=== PATIENT | female | born 1975 ===

== ENCOUNTER 2017-09-25 20:46 | Emergency (ER) | payer MEDICAID ==
[2017-09-25 21:51] VITALS: RESP 16; TEMP 98.4; O2SAT 100
[2017-09-25] MEDS ORDERED: Oxycodone/Acetaminophen 5/325 mg Tab PO STA ×2 (22:36→23:51)
[2017-09-25] MEDS ORDERED: Oxycodone/Acetaminophen 5/325 mg Tab ONE (22:45)
--- NOTE | 2017-09-25 23:54 | CT ---
EXAM: CT Head Without Intravenous Contrast CLINICAL HISTORY: 41 years old, female; Injury or trauma; Fall; Initial encounter; Concussion / head injury; Consciousness not specified; Injury details: Patient states: Fell in bathtub TECHNIQUE: Axial computed tomography images of the head/brain without intravenous contrast. All CT scans at this facility use one or more dose reduction techniques, viz.: automated exposure control; ma/kV adjustment per patient size (including targeted exams where dose is matched to indication; i.e. head); or iterative reconstruction technique. Coronal and sagittal reformatted images were created and reviewed. COMPARISON: No relevant prior studies available. FINDINGS: Brain: Unremarkable. No significant white matter disease. No edema. No intracranial mass, mass effect, or midline shift. Ventricles: Unremarkable. No ventriculomegaly. Bones/joints: Unremarkable. No acute fracture. Soft tissues: Unremarkable. Sinuses: Unremarkable as visualized. No acute sinusitis. Mastoid air cells: Unremarkable as visualized. No mastoid effusion. IMPRESSION: No acute intracranial abnormality.
--- NOTE | 2017-09-26 | CT ---
EXAM: CT Cervical Spine Without Intravenous Contrast CLINICAL HISTORY: 41 years old, female; Injury or trauma; Fall; Initial encounter; Concussion /head injury; Injury details: Patient states: Fell in bathtub; Additional info: Neck injury TECHNIQUE: Axial computed tomography images of the cervical spine without intravenous contrast. All CT scans at this facility use one or more dose reduction techniques, viz.: automated exposure control; ma/kV adjustment per patient size (including targeted exams where dose is matched to indication; i.e. head); or iterative reconstruction technique. Coronal and sagittal reformatted images were created and reviewed. COMPARISON: No relevant prior studies available. FINDINGS: Vertebrae: Unremarkable. No acute fracture. No lytic or blastic lesions. Discs/spinal canal/neural foramina: No acute findings. Soft tissues: Unremarkable. Lung apices: Unremarkable as visualized. IMPRESSION: No acute cervical spine fracture.
--- NOTE | 2017-09-26 01:10 | ED PDOC ---
HPI: Back Time Seen by Provider: 09/25/17 22:30 Chief Complaint (Nursing): Back Pain Chief Complaint (Provider): back pain History Per: Patient (41 y/o female h/o DM here for evaluation of fall that occurred in shower. States she tripped and fell to side/injuring her right shoulder/neck/back and struck head. No LOC. Denies any use of anticoagulants. Did not take any medications prior to ED arrival.) Past Medical History Reviewed: Historical Data, Nursing Documentation, Vital Signs Vital Signs: Last Vital Signs Temp 98.4 F 09/25/17 21:49 Pulse 106 H 09/25/17 21:49 Resp 16 09/25/17 21:49 BP 146/100 H 09/25/17 21:49 Pulse Ox 100 09/25/17 21:49 - Family History Family History: States: No Known Family Hx - Home Medications Home Medications: Ambulatory Orders Medication Instructions Recorded Ibuprofen [Motrin] 600 mg PO Q6 #20 tab 11/05/16 Naproxen 1 tab PO Q12 PRN #14 tab 09/26/17 diaZEpam [Valium] 5 mg PO Q6 PRN #5 tab 09/26/17 - Allergies Allergies/Adverse Reactions: Allergies Allergy/AdvReac Type Severity Reaction Status Date / Time No Known Allergies Allergy Verified 09/25/17 21:49 Review of Systems ROS Statement: Except As Marked, All Systems Reviewed And Found Negative Physical Exam - Reviewed Nursing Documentation Reviewed: Yes Vital Signs Reviewed: Yes - Physical Exam Appears: Positive for: Well, Non-toxic, No Acute Distress Head Exam: Positive for: ATRAUMATIC, NORMAL INSPECTION, NORMOCEPHALIC Skin: Positive for: Normal Color, Warm, DRY Eye Exam: Positive for: EOMI, Normal appearance, PERRL ENT: Positive for: Normal ENT Inspection Neck: Positive for: Normal (paracervical tenderness), Painless ROM Cardiovascular/Chest: Positive for: Regular Rate, Rhythm Respiratory: Positive for: CNT, Normal Breath Sounds Gastrointestinal/Abdominal: Positive for: Normal Exam, Bowel Sounds, Soft Back: Positive for: Normal Inspection, Vertebral Tenderness (paralumbar tenderness) Extremity: Positive for: Normal ROM, Tenderness (tenderness right shoulder/ tender right clavicle.) Neurologic/Psych: Positive for: Alert, Oriented - Laboratory Results Urine POC: Negative - ECG O2 Sat by Pulse Oximetry: 100 - Progress ED Course And Treament: Percocet 5/325 mg x [address] of Head: nad Ct C spine: no fx percocet 5/325 mg x 2nd dose for persistent pain xry of right shoulder: no fx xry of lumbar spine: no fx Disposition - Clinical Impression Clinical Impression: Back pain, Head injury, Shoulder injury - Patient ED Disposition Is Patient to be Admitted: No - Disposition Referrals: [facility] [Outside] Disposition: Routine/Home Disposition Time: :10 Condition: FAIR Prescriptions: diaZEpam [Valium] 5 mg PO Q6 PRN #5 tab PRN Reason: Muscle Spasm Naproxen 1 tab PO Q12 PRN #14 tab PRN Reason: Pain, Moderate (4-7) Instructions: Head Injury (ED), Acute Low Back Pain (GEN), Shoulder Sprain (ED) Forms: [employer] (Irish), [facility] ED School/Work Excuse
[2017-09-26] MEDS ORDERED: HYDROmorphone 0.5 mg/0.5 ml ISec IM STA (01:22)
[2017-09-26 01:44] VITALS: BP 139/86; PULSE 86
--- NOTE | 2017-09-26 11:18 | RAD ---
PROCEDURE: Radiographs of the Lumbar Spine. HISTORY: INJURY COMPARISON: No prior. FINDINGS: BONES: Normal alignment. No listhesis. No fracture. DISC SPACES: Unremarkable. OTHER FINDINGS: Constipation without fecal impaction or obstruction. IMPRESSION: Unremarkable radiographs of the lumbar spine.
--- NOTE | 2017-09-26 11:19 | RAD ---
PROCEDURE: Radiographs of the Right Shoulder HISTORY: RIGHT INJURY COMPARISON: No prior. FINDINGS: BONES: Normal. No fracture. JOINTS: Normal. Glenohumeral and acromioclavicular joints preserved. No osteoarthritis. SOFT TISSUES: Normal. OTHER FINDINGS: None. IMPRESSION: Normal radiographs of the right shoulder.
== END 2017-09-26 01:43 | disposition home or self-care (01) ==
LOC: H.ER 20:46
DX: S09.90XA Unspecified injury of head, initial encounter (principal); M54.9 Dorsalgia, unspecified; W01.0XXA Fall on same level from slipping, tripping and stumbling without subsequent striking against object, initial encounter; Y93.E1 Activity, personal bathing and showering; E11.9 Type 2 diabetes mellitus without complications
CPT/HCPCS: 70450; 72100; 72125; 73030; 81025; 96372; 99282; J1170

== ENCOUNTER 2018-10-06 19:54 | Emergency (ER) | payer MEDICAID ==
[2018-10-06 19:55] VITALS: BMI 30.7
[2018-10-06 20:56] VITALS: BP 132/62; PULSE 90; RESP 17; TEMP 98.4; O2SAT 100
--- NOTE | 2018-10-06 21:13 | ED PDOC ---
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 Patient states she thought that she had to take x2 pills in the morning, afternoon and evening instead of all at once and became concerned prompting ED evaluation. She denies any chest pain, shortness of breath or other medical complaints. PMD: Brodie Scales Past Medical History Reviewed: Historical Data, Nursing Documentation, Vital Signs Vital Signs: Last Vital Signs Temp 98.4 F 10/06/18 20:55 Pulse 90 10/06/18 20:55 Resp 17 10/06/18 20:55 BP 132/62 10/06/18 20:55 Pulse Ox 100 10/06/18 20:55 - Medical History PMH: Asthma (NEVER HOSPITALIZED), Colonic Polyps, Fractures (HX: LEFT ANKLE FRACTURE-PINS AND SCREWS PLACED), Hypothyroidism Denies: Chronic Kidney Disease - Surgical History Surgical History: No Surg Hx - Family History Family History: States: Unknown Family Hx - Social History Current smoker - smoking cessation education provided: No Alcohol: None Drugs: Denies - Home Medications Home Medications: Ambulatory Orders Medication Instructions Recorded Albuterol HFA [Ventolin HFA 90 2 puff IH PRN PRN 06/09/18 mcg/actuation (8 g)] Fluticasone/Salmeterol 250/50 1 puff IH DAILY 06/09/18 [Advair Diskus 250/50] Insulin Glargine,Hum.rec.anlog 50 units SC QAM 06/09/18 [Basaglar Kwikpen U-100] Insulin Lispro [Humalog Kwikpen 0 units SC TID 06/09/18 U-100] Levothyroxine [Synthroid] 165 mcg PO DAILY 06/09/18 - Allergies Allergies/Adverse Reactions: Allergies Allergy/AdvReac Type Severity Reaction Status Date / Time No Known Allergies Allergy Verified 09/25/17 21:49 Review of Systems ROS Statement: Except As Marked, All Systems Reviewed And Found Negative Cardiovascular: Negative for: Chest Pain Respiratory: Negative for: Shortness of Breath Physical Exam - Reviewed Nursing Documentation Reviewed: Yes Vital Signs Reviewed: Yes - Physical Exam Appears: Positive for: No Acute Distress Head Exam: Positive for: ATRAUMATIC, NORMAL INSPECTION, NORMOCEPHALIC Skin: Positive for: Normal Color, Warm, Dry Eye Exam: Positive for: Normal appearance, EOMI, PERRL Neck: Positive for: Normal, Painless ROM, Supple Cardiovascular/Chest: Positive for: Regular Rate, Rhythm. Negative for: Murmur Respiratory: Positive for: Normal Breath Sounds. Negative for: Respiratory Distress Extremity: Positive for: Normal ROM (upper and lower extremities). Negative for: Deformity, Swelling Neurologic/Psych: Positive for: Alert, Oriented - ECG O2 Sat by Pulse Oximetry: 100 (RA) Pulse Ox Interpretation: Normal Medical Decision Making Medical Decision Making: Time: Initial Impression: Reassurance Initial Plan: 21:30 Patient informed that in the future any questions regarding ingestions of substance, she can always call poison control and they will help guide her. Patient is medically stable for discharge home. Scribe Attestation: Documented by Roland Flower, acting as a scribe for Carly Moe PA-C. Provider Scribe Attestation: All medical record entries made by the Scribe were at my direction and personally dictated by me. I have reviewed the chart and agree that the record accurately reflects my personal performance of the history, physical exam, medical decision making, and the department course for this patient. I have also personally directed, reviewed, and agree with the discharge instructions and disposition. Disposition - Clinical Impression Clinical Impression: Medication administered in error - Patient ED Disposition Is Patient to be Admitted: No - Disposition Referrals: Brodie Scales MD [Family Provider] - Disposition: Routine/Home Disposition Time: 21:30 Condition: STABLE Additional Instructions: Continue with Methylprednisolone as indicated. Return to ER if you begin to feel dizzy or shortness of breath. Print Language: NAMIBIAN
== END 2018-10-06 21:45 | disposition home or self-care (01) ==
LOC: H.ER 19:54
DX: Z00.00 Encounter for general adult medical examination without abnormal findings (principal)